=== PATIENT | male | born 1995 | race Caucasian/White ===

== ENCOUNTER 2018-12-28 14:21 | Emergency (ER) | payer OTHER, SELFPAY ==
[2018-12-28 14:22] VITALS: BP 149/79; PULSE 95; RESP 18; TEMP 36.6; O2SAT 92; BMI 56.0
[2018-12-28 15:10] VITALS: O2SAT 98
--- NOTE | 2018-12-28 15:36 | CT_ITS ---
STUDY: CT CERVICAL SPINE WITHOUT CONTRAST REASON FOR EXAM: Male, 23 years old. Fall, neck pain. RADIATION DOSAGE (If Supplied By Facility): CTDIvol = ( 30.89 ) mGy, DLP = ( 748.92 ) mGycm TECHNIQUE: High resolution transaxial imaging was performed without contrast material. Sagittal and coronal images were reconstructed. Individualized dose optimization techniques were used for this CT. COMPARISON: None FINDINGS: Normal craniovertebral junction. Normal anterior atlantoaxial articulation. Normal odontoid process. There is straightening of the normal cervical lordosis. Normal vertebral bodies and posterior osseous elements. C2-3: Normal endplates. Normal disc height and morphology. Normal central canal and intervertebral neuroforamina. C3-4: Normal endplates. Normal disc height and morphology. Normal central canal and intervertebral neuroforamina. C4-5: Normal endplates. Normal disc height and morphology. Normal central canal and intervertebral neuroforamina. C5-6: Normal endplates. Normal disc height and morphology. Normal central canal and intervertebral neuroforamina. C6-7: Normal endplates. Normal disc height and morphology. Normal central canal and intervertebral neuroforamina. C7-T1: Normal endplates. Normal disc height and morphology. Normal central canal and intervertebral neuroforamina. Normal visualized soft tissue structures. CT/Spine Cervical without Contras IMPRESSION: No fracture or subluxation. Straightening of the normal lordotic curvature possibly from muscular spasm. Electronically Signed: Shen Carmichael MD at 16:36 EDT Tel , Service support ,
--- NOTE | 2018-12-28 15:36 | CT_ITS ---
STUDY: CT BRAIN WITHOUT CONTRAST REASON FOR EXAM: Male, 23 years old. Fall, hit head, headache RADIATION DOSAGE (If Supplied By Facility): CTDIvol = ( 60.81 ) mGy, DLP = ( 1112.69 ) mGycm TECHNIQUE: Transaxial CT imaging of the brain was performed without administration of intravenous contrast material. Individualized dose optimization techniques were used for this CT. COMPARISON: No relevant priors. FINDINGS: Normal soft tissue structures. Normal calvarium. Normal size ventricles and extra-axial spaces for the patient's age. Normal white matter tracts of the cerebral hemispheres. Normal basal ganglia and thalami. Normal brainstem. Normal cerebellum. There is no intracranial hemorrhage. There are no findings of an acute ischemic infarction. Normal visualized paranasal sinuses. CT/Brain/Head without Contrast IMPRESSION: Normal unenhanced CT scan of the brain. Electronically Signed: Shen Carmichael MD at 16:35 EDT Tel , Service support ,
--- NOTE | 2018-12-28 15:50 | RAD_ITS ---
STUDY: X-RAY - THORACIC SPINE REASON FOR EXAM: Male, 23 years old. Fall, back pain TECHNIQUE: 3 view(s) of the thoracic spine were obtained. COMPARISON: None. FINDINGS: Normal kyphosis of the thoracic spine. There is no substantial scoliosis. Normal thoracic vertebrae and endplates. Normal disc space heights. The soft tissue structures are unremarkable. RAD/Thoracic Spine 3 Views IMPRESSION: Normal x-ray examination of the thoracic spine. Electronically Signed: Shen Carmichael MD at 16:37 EDT Tel , Service support ,
[2018-12-28 16:24] VITALS: PULSE 87; RESP 16; O2SAT 97
[2018-12-28] MEDS: Naproxen 500 MG Tablet PO (16:24)
[2018-12-28] MEDS: Ondansetron ODT 4 MG Tablet 8 MG PO (16:24)
--- NOTE | 2018-12-28 17:18 | ED.DCSUM_ITS ---
History of Present Illness Chief Complaint: Fall Informant: Patient Onset: Today - JPTA Mechanism/Context: Fall, Slip - on wet, mossy wooden step Quality of Pain: Aching Location: head, neck, upper back Current Severity: Moderate Maximum Severity: Moderate Worsened by: movement Relieved by: remaining still Associated Symptoms: Negative for: Parasthesias, Weakness, Inability to ambulate, Loss of consciousness - but dazed for couple mins, Amnesia Narrative: Patient was working, carrying heavy box making a delivery, he walked up some wooden steps that had some M[place] on them, shortly after it drained and they were slippery. He slipped and fell back, flat on his back hitting the back of his head on the concrete, he hit his elbows but states they are not bothering him to bed. He did not lose consciousness and he got up to ambulate shortly thereafter, he has had a headache since, mild nausea, feeling a little dizzy/vertiginous, no focal peripheral neurologic symptoms. No other injuries. - Past Medical History (1) Depression Status: Chronic Past Medical History - Allergies and Home Meds Allergies/Adverse Reactions: Allergies No Known Allergies Allergy (Verified 12/28/18 14:29) Primary Care Physician: Jesus Doctor,Out of [Primary Care Provider] - Surgical History: no surgical history Smoking Status: Never smoker Review of Systems General: Denies: Chills, Fever, Sweats Eyes: Denies: Visual changes - bilaterally, Diplopia ENT: Denies: Rhinorrhea, Sore throat Cardiovascular: Denies: Chest pain, Palpitations Respiratory: Denies: Dyspnea, Cough, Dyspnea on exertion Gastrointestinal: Reports: Nausea. Denies: Abdominal pain, Vomiting, Diarrhea, Melena, Hematochezia Genitourinary: Denies: Dysuria, Hematuria, Frequency Musculoskeletal: Reports: Neck pain, Back pain, Extremity Pain - mild, both elbows Skin: Denies: Rash, Wounds Neurological: Reports: Headache. Denies: Weakness, Parasthesia, Numbness Physical Exam Vital Signs/Narrative: Vital Signs Temp Pulse Resp BP Pulse Ox 12/28/18 16:24 87 16 97 12/28/18 15:10 98 12/28/18 14:22 97.8 F 95 18 149/79 H 92 Inital Vital Signs reviewed: Yes General: Well nourished, Well developed Head: Normocephalic - without crepitance/depression, Atraumatic Eyes: Perrl, EOMI ENT: TM's clear, No hemotympanum or drainage, No trauma Neck: Spinal Tenderness - upper half of cervical spine; no step off; prehospital c-collar maintained., Paraspinal Tenderness - bilat Cardiovascular: Regular rate, Regular rhythm, No murmurs Respiratory: No distress, CTA bilaterally, Chest nontender Abdomen: Soft, Nontender, Nondistended, Normal bowel sounds Back: Spinal Tenderness - Upper thoracic spine, T2-T5 area, but not at the very top. No step-offs. No obvious signs of trauma on inspection. Extremeties: Both elbows atraumatic, no bony tenderness, full range of motion without significant discomfort. Otherwise, extremities are atraumatic with full range of motion, he is able to bear weight without difficulty. Skin: Normal color, No rash, No Trauma Neurological: Alert, Oriented x3, Cranial nerves II-XII grossly intact, Normal Strength, Normal Sensation, Normal Gait Psychological: Normal affect - Glascow Coma Scale Eye Opening: Spontaneous Motor: Obeys Commands Verbal: Oriented Coma Scale Total: 15 Diagnostic/Tx/Re-eval Clinical Impression(s) from Imaging Studies Brain CT 12/28/18 15:36 IMPRESSION: Normal unenhanced CT scan of the brain. Electronically Signed: Shen Carmichael MD at 16:35 EDT Tel , Service support , Cervical Spine CT 12/28/18 15:36 IMPRESSION: No fracture or subluxation. Straightening of the normal lordotic curvature possibly from muscular spasm. Electronically Signed: Shen Carmichael MD at 16:36 EDT Tel , Service support , Thoracic Spine X-Ray 12/28/18 15:50 IMPRESSION: Normal x-ray examination of the thoracic spine. Electronically Signed: Shen Carmichael MD at 16:37 EDT Tel , Service support , - Medical Decision Making Patient was given Naprosyn and some Zofran, he did feel little better afterwards, imaging shows no acute injury. He was given appropriate work restrictions, a prescription for nausea medication, and close outpatient follow- up with [facility] for further restrictions and evaluation. ED Disposition - Plan for ED Patient: Disposition: Home or Assisted Living Diagnosis: Concussion without loss of consciousness, Cervical strain, acute, Fall from slip, trip, or stumble Instructions: HEAD INJURY, No Wake-Up (Adult) Prescriptions: Ondansetron [Zofran] 8 mg PO Q8H PRN #12 tab PRN Reason: Nausea/Vomiting Prescription Printed Referrals: [facility] [GROUP OF PHYSICIANS] - 1 Day (call for appt)
[2018-12-28 17:53] VITALS: BP 139/68; PULSE 89; RESP 15; O2SAT 99
== END 2018-12-28 17:54 | disposition home or self-care (01) ==
PROVIDERS: Emergency Provider Emergency Medicine
DX: S06.0X0A Concussion without loss of consciousness, initial encounter (principal); S16.1XXA Strain of muscle, fascia and tendon at neck level, initial encounter; R40.2410 Glasgow coma scale score 13-15, unspecified time; W01.0XXA Fall on same level from slipping, tripping and stumbling without subsequent striking against object, initial encounter; Y93.9 Activity, unspecified; Y92.9 Unspecified place or not applicable; F32.9 Major depressive disorder, single episode, unspecified; Z79.899 Other long term (current) drug therapy
CPT/HCPCS: 70450; 72072; 72125; 99285